=== PATIENT | female | born 2000 | race Two or more races ===

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

== ENCOUNTER 2023-07-13 07:19 | Outpatient (CLI) | payer OTHER ==
[~2023-07-13 07:19] MED LIST: CLARITIN-D 121 EACH PO; TYLENOL325 MG PO; ZITHROMAX TRI-500 MG PO
== END 2023-07-13 07:31 | disposition home or self-care (01) ==
LOC: SONOGRAMA 07:19
PROVIDERS: ATTEND General Practice
DX: R10.2 Pelvic and perineal pain (principal)

== ENCOUNTER 2024-11-09 12:30 | Outpatient (CLI) | payer OTHER | END 2024-11-09 12:36 | disposition home or self-care (01) | LOC: RAD 12:30 | DX: Z01.89 Encounter for other specified special examinations (principal) ==